=== PATIENT | female | born 1980 | race Two or more races ===

== ENCOUNTER 2025-03-29 08:50 | Inpatient (IN) | payer MEDICAID ==
[~2025-03-29] VITALS: Ht 167.6 cm; Wt 82.0 kg
[2025-03-29 09:11] VITALS: PULSE 65; RESP 18
[2025-03-29] MEDS: SODIUM CHLORIDE 0.9% 2,000 ML IV ONE (09:18)
[2025-03-29 09:23] LABS: Basophils # (auto) 0 10 ^3/uL (0-0.2); Basophils % (auto) 0.1 % (0.0-2.0); Eosinophils # (auto) 0 10 ^3/uL (0-0.8); Hematocrit 42.3 % (36.0-46.0); Hemoglobin 14.8 g/dL (12.2-16.2); Lymphocytes # (auto) 0.5 10 ^3/uL (0.4-5.4); Lymphocytes % (auto) 2.7 % (10.0-50.0); Mean Corpuscular Hemoglobin 31.3 pg (28.0-32.0); Mean Corpuscular Hgb Conc. 34.9 g/dL (32.0-36.0); Mean Corpuscular Volume 89.6 fL (80.0-100.0); Monocytes # (auto) 1.2 10 ^3/uL (0-1.3); Monocytes % (auto) 6.9 % (0.0-12.0); Neutrophils % (auto) 90.3 % (37.0-80.0); Platelet Count (auto) 217 10^3/uL (140-450); Red Blood Cells 4.72 10^6/uL (4.0-5.20); Red Cell Distribution Width 12.9 % (11.8-14.3); White Blood Cell 17.7 10^3/uL (4.4-10.8)
[2025-03-29] MEDS: VANCOMYCIN 1GM/200ML PM 200 ML IV ONE (09:23)
--- NOTE | 2025-03-29 09:37 | ED.PDOC ---
History of Present Illness HPI Comments 44-year-old female presents to the ER with prior medical history of hypertension; surgical history of cholecystectomy, and a chief complain of flank pain. Patient reports on having fever, chills, headache, body aches, swelling, bilateral back pain, N/V, right flank pain with burning urination all since Saturday. Patient had her blood pressure in triage of 94/66. Denies /D, SOB, CP. No other associated symptoms, modifiers, recent injuries or sick contacts present at this time. 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 JACK TAMP OPERATOR History Family History Family History: Reviewed,noncontributory to illness, Unknown Social History Smoker: Non-Smoker Alcohol: Denies ETOH Use Drugs: Denies Drug Use Lives In: Home Constitutional: reports: chills, fever; denies: diaphoresis, fatigue, malaise, sweats, weakness, others EENTM: denies: blurred vision, double vision, ear bleeding, ear discharge, ear drainage, ear pain, ear ringing, eye pain, eye redness, hearing loss, mouth pain, mouth swelling, nasal discharge, nose bleeding, nose congestion, nose pain, photophobia, tearing, throat pain, throat swelling, voice changes, others Respiratory: denies: cough, hemoptysis, orthopnea, SOB at rest, shortness of breath, SOB with excertion, stridor, wheezing, others Cardiovascular: denies: chest pain, dizzy spells, diaphoresis, Dyspnea on e xertion, edema, irregular heart beat, left arm pain, lightheadedness, palpitations, PND, syncope, others Gastrointestinal: reports: nausea, vomiting; denies: abdomen distended, abdominal pain, blood streaked bowels, constipated, diarrhea, dysphagia, difficulty swallowing, hematemesis, melena, poor appetite, poor fluid intake, rectal bleeding, rectal pain, others Genitourinary: reports: flank pain; denies: abnormal vagina bleeding, burning, dyspareunia, dysuria, frequency, hematuria, incontinence, pain, , vagina discharge, urgency, others Neurological: denies: dizziness, fainting, headache, left sided numbness, left sided weakness, numbness, paresthesia, pre-existing deficit, right sided numbness, right sided weakness, seizure, speech problems, tingling, tremors, weakness, others Musculoskeletal: denies: back pain, gout, joint pain, joint swelling, muscle pain, muscle stiffness, neck pain, others Integumetry: denies: bruises, change in color, change in hair/nails, dryness, laceration, lesions, lumps, rash, wounds, others Allergic/Immunocompromised: denies: Difficulty Healing, Frequent Infections, Hives, Itching, others Hematologic/Lymphatic: denies: anemia, blood clots, easy bleeding, easy bruising, swollen glands, others Endocrine: denies: excessive hunger, excessive sweating, excessive thirst, excessive urination, flushing, intolerance to cold, intolerance to heat, unexplained weight gain, unexplained weight loss, others Psychiatric: denies: anxiety, bipolar disorder, depression, hopeless, panic d isorder, schizophrenia, sleepless, suicidal, others All Other Systems: Reviewed and Negative Physical Exam General Appearance: No Apparent Distress, Normal HEENT: Normal ENT Inspection, Pharynx Normal, TMs Normal Neck: Full Range of Motion, Non-Tender, Normal, Normal Inspection Respiratory: Chest Non-Tender, Lungs Clear, No Accessory Muscle Use, No Respiratory Distress, Normal Breath Sounds Cardiovascular: No Edema, No JVD, No Murmur, No Gallop, Normal Peripheral Pulses, Regular Rate/Rhythm Breast Exam: Deferred Gastrointestinal: No Organomegaly, Non Tender, No Pulsatile Mass, Normal Bowel Sounds, Soft Genitalia: Deferred Pelvic: Deferred Rectal: Deferred Extremities: No calf tenderness, Normal capillary refill, Normal inspection, Normal range of motion, Non-tender, No pedal edema Musculoskeletal : Apperance: Normal Neurologic: Alert, lathe set up person II-XII nml as Tested, No Motor Deficits, Normal Affect, Normal Mood, No Sensory Deficits Cerebellar Function: Normal Reflexes: Normal Skin: Dry, Normal Color, Warm Lymphatic: No Adenopathy Was a procedure done? Was a procedure done?: No Differential Dx Considerations may include: UTI, pyelonephritis, gastritis, pneumonia, viral syndrome X-Ray, Labs, Meds, VS Vital Signs Date Time Temp Pulse Resp B/P (MAP) Pulse Ox O2 Delivery O2 Flow Rate FiO2 03/29/25 09:11 65 18 Room Air* 0 21 03/29/25 09:06 97.5 115 16 94/66 (75) 96 97.5 03/29/25 09:06 97.5 115 16 94/66 (75) 96 97.5 Lab Test 03/29/25 09:36 03/29/25 09:19 03/29/25 09:08 03/29/25 08:59 Range/Units Urine Color Dark-brown Yellow Urine Clarity Turbid H Clear Urine pH 5.5 5.0-9.0 Urine Specific [place] 1.019 1.001-1.035 Urine Protein 1+ H Negative Urine Ketones Negative Negative Urine Blood Trace H Negative /uL Urine Nitrite 1+ H Negative Urine Bilirubin 1+ H Negative Urine Urobilinogen 4 H Negative mg/dL Urine Leukocyte Esterase Negative Negative /uL Urine RBC 4 0 - 4 /hpf Urine WBC Clumps Present None Seen /hpf Urine Microscopic WBC 56 H 0-5 /HPF Urine Squamous Epithelial Cells Few <5 /hpf Urine Bacteria Few H None Seen /hpf Urine Mucus Few None Seen Urine Glucose Normal Normal mg/dL Lactic Acid Level 1.6 0.4-2.0 mmol/L White Blood Count 17.7 H 4.4-10.8 10^3/uL Red Blood Count 4.72 4.0-5.20 10^6/uL Hemoglobin 14.8 12.2-16.2 g/dL Hematocrit 42.3 36.0-46.0 % Mean Corpuscular Volume 89.6 80.0-100.0 fL Mean Corpuscular Hemoglobin 31.3 28.0-32.0 pg Mean Corpuscular Hemoglobin Concent 34.9 32.0-36.0 g/dL Red Cell Distribution Width 12.9 11.8-14.3 % Platelet Count 217 140-450 10^3/uL Mean Platelet Volume 7.9 6.9-10.8 fL Neutrophils (%) (Auto) 90.3 H 37.0-80.0 % Lymphocytes (%) (Auto) 2.7 L 10.0-50.0 % Monocytes (%) (Auto) 6.9 0.0-12.0 % Eosinophils (%) (Auto) 0.0 0.0-7.0 % Basophils (%) (Auto) 0.1 0.0-2.0 % Neutrophils # (Auto) 16.0 H 1.6-8.6 10 ^3/uL Lymphocytes # (Auto) 0.5 0.4-5.4 10 ^3/uL Monocytes # (Auto) 1.2 0-1.3 10 ^3/uL Eosinophils # (Auto) 0 0-0.8 10 ^3/uL Basophils # (Auto) 0 0-0.2 10 ^3/uL Nucleated Red Blood Cells 0.0 % Prothrombin Time 12.2 H 9.3-11.8 sec Prothrombin Time INR 1.17 H 0.9-1.15 Activated Partial Thromboplast Time 29.3 24.5-34.5 SEC Sodium Level 140 136-145 mmol/L Potassium Level 3.7 3.5-5.1 mmol/L Chloride Level 103 98-107 mmol/L Carbon Dioxide Level 25 20-31 mmol/L Anion Gap 12 5-15 Blood Urea Nitrogen 19 9-23 mg/dL Creatinine 1.30 H 0.550-1.02 mg/dL Glomerular Filtration Rate Calc 52 >90 mL/min BUN/Creatinine Ratio 14.6 10.0-20.0 Serum Glucose 147 H 74-106 mg/dL Calcium Level 10.6 H 8.7-10.4 mg/dL Total Bilirubin 1.7 H 0.2-1.0 mg/dL Aspartate Amino Transferase (AST) 78 H 13-40 U/L Alanine Aminotransferase (ALT) 167 H 7-40 U/L Alkaline Phosphatase 172 H 46-116 U/L Total Protein 7.9 5.7-8.2 g/dL Albumin 4.8 3.2-4.8 g/dL Urine Test Negative Negative Current Medications Medications (Trade) Dose Ordered Sig/Nori Route Start Time Stop Time Status Last Admin Vancomycin HCl 200 ml @ 200 mls/hr ONCE ONCE IV 03/29/25 09:15 03/29/25 10:43 DC 03/29/25 09:23 Sodium Chloride 2,000 ml @ 1,000 mls/hr Q2H ONCE IV 03/29/25 09:15 03/29/25 11:14 DC 03/29/25 09:18 Time of 1ST Reevaluation: 09:30 Reevaluation 1ST: Unchanged Patient Education/Counseling: Diagnosis, Treatment, Prognosis Family Education/Counseling: No Family Present Sepsis Sepsis Reasesment Focused Exam Orders: Laboratory Tests 03/29/25 09:19: Lactic Acid Level 1.6 Departure 1 Departure Time of Disposition: 12:12 (Patient presents with pyelonephritis concerns for sepsis. We will empirically cover patient with antibiotics and admit patient fo r further workup and expert consultation. Patient's blood pressure improved after receiving fluids.) Impression: Primary Impression: Acute pyelonephritis Disposition: ADMITTED INPATIENT Admit to: Med Surg Condition: Serious Critical Care Note Critical Care Time?: Yes Critical care comment: Concern for sepsis Authorized and Performed by: Joelle Philippe MD Total critical care time: Approximately 34 minutes Due to a high probability of clinically significant, life threatening deterioration, the patient required my highest level of preparedness to intervene emergently and I personally spent this critical care time directly and personally managing the patient. This critical care time included obtaining a h istory; examining the patient; pulse oximetry; ordering and review of studies; arranging urgent treatment with development of a management plan; evaluation of patient's response to treatment; frequent reassessment; and, discussions with other providers. This critical care time was performed to assess and manage the high probability of imminent, life-threatening deterioration that could result in multi-organ failure. It was exclusive of separately billable procedures and treating other patients and teaching time. Please see my other sections and the rest of the note for further information on patient assessment and treatment. Stability Stability form required: No I personally scribed for JOELLE PHILIPPE MD ([email or web address]) on 03/29/25 at 09:37. Electronically submitted by Stef Marshall ([email or web address]). JOELLE PHILIPPE MD Mar 29, 2025 09:37
[2025-03-29 09:38] LABS: Anion Gap 12 (5-15); BUN/Creatinine Ratio 14.6 (10.0-20.0); Blood Urea Nitrogen 19 mg/dL (9-23); Carbon Dioxide 25 mmol/L (20-31); Chloride 103 mmol/L (98-107); Potassium 3.7 mmol/L (3.5-5.1); Sodium 140 mmol/L (136-145); Total Protein 7.9 g/dL (5.7-8.2)
[2025-03-29 09:39] LABS: INR 1.17 (0.9-1.15); Partial Thromboplastin Time 29.3 SEC (24.5-34.5); Prothrombin Time 12.2 sec (9.3-11.8)
[2025-03-29 09:43] LABS: Alanine Aminotransferase 167 U/L (7-40); Albumin 4.8 g/dL (3.2-4.8); Alkaline Phosphatase 172 U/L (46-116); Aspartate Aminotransferase 78 U/L (13-40); Bilirubin, Total 1.7 mg/dL (0.2-1.0); Calcium 10.6 mg/dL (8.7-10.4); Glucose 147 mg/dL (74-106)
--- NOTE | 2025-03-29 10:06 | DVH ---
EXAM: XY CHEST PORTABLE Indication: weakness Technique: Single frontal view of the chest was obtained Comparison: None FINDINGS: Lines and Tubes: None Lungs: No focal consolidation. Pleura: No effusion. No pneumothorax. Cardiomediastinal contours: Unremarkable. Atherosclerotic vascular calcifications of the thoracic ao rta are noted. Bones: No acute osseous abnormality. IMPRESSION: No acute cardiopulmonary disease.
[2025-03-29 11:56] LABS: Urine Bacteria FEW /hpf (None Seen); Urine Blood TRACE /uL (Negative); Urine Clarity Turbid (Clear); Urine Color Dark-Brown (Yellow); Urine Mucus FEW (None Seen); Urine Protein, UAD 1+ (Negative); Urine Specific Gravity 1.019 (1.001-1.035); Urine Squamous Epithelial Cell FEW /hpf (<5); Urine Urobilinogen 4 mg/dL (Negative); Urine WBC 56 /HPF (0-5); Urine WBC Clumps PRESENT /hpf (None Seen); Urine pH 5.5 (5.0-9.0)
[2025-03-29] MEDS: CEFEPIME 1GM/ 50ML 50 ML IV SCH (14:13)
--- NOTE | 2025-03-29 14:16 | DVH ---
INDICATION: flank pain TECHNIQUE: Multiple real-time sonographic images of the kidneys and bladder were obtained. COMPARISON: None FINDINGS: The right kidney measures 11 cm in length, which is normal in size. There is normal echogen icity of the right kidney. No hydronephrosis. The left kidney measures 12 cm in length, which is normal in size. There is normal echogenicity of th e left kidney. No hydronephrosis. No large intraluminal masses are seen in the bladder. IMPRESSION: 1. Normal sonographic appearance of the kidneys. No hydronephrosis.
[2025-03-29] MEDS ORDERED: ONDANSETRON HCL 4 MG/2 ML VIAL IV PRN (14:30)
[2025-03-29] MEDS ORDERED: DOCUSATE SOD 100 MG CAP PO PRN (14:30)
[2025-03-29] MEDS ORDERED: MORPHINE SULFATE INJ 2 MG/ml SYRG IV PRN (14:30)
[2025-03-29] MEDS ORDERED: VANCOMYCIN PER PHARMACY 0 MG IV SCH (14:30)
--- NOTE | 2025-03-29 14:46 | DVHHP2 ---
History of Present Illness Reason for Visit: Flank pain History of Present Illness Ciarra Marshall is a 44-year-old with past medical history of hypertension, who came to the hospital for flank pain. Patient states her pain began on Saturday with associated fever, chills, nausea, dysuria, frequency, and malaise. Patient states she was taking over the counter medications without improvement. They would help her for a little bit, then her symptoms would return. Cardiovascular: HTN Past Surgical History: Cholecystectomy, (x 3) Family History: None Smoke: No ALCOHOL: occassional Drugs: None Lives: with Family Review of Systems Constitutional: No: Fever, Chills, Sweats, Weakness, Malaise, Other Eyes: No: Pain, Vision change, Conjunctivae inflammation, Eyelid inflammation, Other, Redness ENT: No: Ear pain, Ear discharge, Nose pain, Nose discharge, Nose congestion, Mouth pain, Mouth swelling, Throat pain, Throat swelling, Other Respiratory: No: Cough, Dry, Shortness of breath, SOB with excertion, Wheezing, Hemoptysis, Pleuritic Pain, Sputum, Wheezing, Other Cardiovascular: No: Chest Pain, Palpitations, Orthopnea, Paroxysmal Noc. Dyspnea, Edema, Lt Headedness, Other Gastrointestinal: Nausea; No: Vomiting, Abdominal Pain, Diarrhea, Constipation, Melena, Hematochezia, Other Genitourinary: Dysuria, Frequency; No Incontinence, No Hematuria, No Retention, No Other Musculoskeletal: back pain (flank pain that radiates to abdomen); No: other, neck pain, shoulder pain, arm pain, hand pain, leg pain, foot pain Skin: No: Rash, Lesions, Jaundice, Bruising, Other Neurological: No: Weakness, Numbness, Incoordination, Change in speech, Confusion, Seizures, Other Allergies: Coded Allergies: NO KNOWN ALLERGIES (Unverified , 03/29/25) Medications Current Medications Medications Dose Ordered Sig/Nori Route Start Time Stop Time Status Last Admin Dose Admin Cefepime HCl 50 ml @ 12.5 mls/hr Q8HR IV 03/29/25 14:00 03/29/25 14:13 12.5 MLS/HR Exam Vital Signs Vital Signs Date Time Temp Pulse Resp B/P (MAP) Pulse Ox O2 Delivery O2 Flow Rate FiO2 03/29/25 12:46 98.4 89 18 106/75 (85) 98 98.4 03/29/25 09:11 Room Air* 0 21 General Appearance: Alert, Oriented X3, Cooperative, moderate distress HEENT: Atraumatic, PERRLA Respiratory: Clear to auscultation, Normal air movement Cardiovascular: Regular rate, Normal S1, Normal S2, No murmurs Abdominal: Normal bowel sounds, Soft, Other (flank pain that radiates to her abdomen) Extremities: No clubbing, No cyanosis, Normal pulses Skin: No rashes, No breakdown, No significant lesion Neuro: Normal gait, Normal speech, Strength at 5/5 X4 ext Psych/Mental Status: Mental status NL, Mood NL Labs/Xrays Labs Test 03/29/25 09:36 03/29/25 09:19 03/29/25 09:08 03/29/25 08:59 Range/Units Urine Color Dark-brown Yellow Urine Clarity Turbid H Clear Urine pH 5.5 5.0-9.0 Urine Specific [place] 1.019 1.001-1.035 Urine Protein 1+ H Negative Urine Ketones Negative Negative Urine Blood Trace H Negative /uL Urine Nitrite 1+ H Negative Urine Bilirubin 1+ H Negative Urine Urobilinogen 4 H Negative mg/dL Urine Leukocyte Esterase Negative Negative /uL Urine RBC 4 0 - 4 /hpf Urine WBC Clumps Present None Seen /hpf Urine Microscopic WBC 56 H 0-5 /HPF Urine Squamous Epithelial Cells Few <5 /hpf Urine Bacteria Few H None Seen /hpf Urine Mucus Few None Seen Urine Glucose Normal Normal mg/dL Lactic Acid Level 1.6 0.4-2.0 mmol/L White Blood Count 17.7 H 4.4-10.8 10^3/uL Red Blood Count 4.72 4.0-5.20 10^6/uL Hemoglobin 14.8 12.2-16.2 g/dL Hematocrit 42.3 36.0-46.0 % Mean Corpuscular Volume 89.6 80.0-100.0 fL Mean Corpuscular Hemoglobin 31.3 28.0-32.0 pg Mean Corpuscular Hemoglobin Concent 34.9 32.0-36.0 g/dL Red Cell Distribution Width 12.9 11.8-14.3 % Platelet Count 217 140-450 10^3/uL Mean Platelet Volume 7.9 6.9-10.8 fL Neutrophils (%) (Auto) 90.3 H 37.0-80.0 % Lymphocytes (%) (Auto) 2.7 L 10.0-50.0 % Monocytes (%) (Auto) 6.9 0.0-12.0 % Eosinophils (%) (Auto) 0.0 0.0-7.0 % Basophils (%) (Auto) 0.1 0.0-2.0 % Neutrophils # (Auto) 16.0 H 1.6-8.6 10 ^3/uL Lymphocytes # (Auto) 0.5 0.4-5.4 10 ^3/uL Monocytes # (Auto) 1.2 0-1.3 10 ^3/uL Eosinophils # (Auto) 0 0-0.8 10 ^3/uL Basophils # (Auto) 0 0-0.2 10 ^3/uL Nucleated Red Blood Cells 0.0 % Prothrombin Time 12.2 H 9.3-11.8 sec Prothrombin Time INR 1.17 H 0.9-1.15 Activated Partial Thromboplast Time 29.3 24.5-34.5 SEC Sodium Level 140 136-145 mmol/L Potassium Level 3.7 3.5-5.1 mmol/L Chloride Level 103 98-107 mmol/L Carbon Dioxide Level 25 20-31 mmol/L Anion Gap 12 5-15 Blood Urea Nitrogen 19 9-23 mg/dL Creatinine 1.30 H 0.550-1.02 mg/dL Glomerular Filtration Rate Calc 52 >90 mL/min BUN/Creatinine Ratio 14.6 10.0-20.0 Serum Glucose 147 H 74-106 mg/dL Calcium Level 10.6 H 8.7-10.4 mg/dL Total Bilirubin 1.7 H 0.2-1.0 mg/dL Aspartate Amino Transferase (AST) 78 H 13-40 U/L Alanine Aminotransferase (ALT) 167 H 7-40 U/L Alkaline Phosphatase 172 H 46-116 U/L Total Protein 7.9 5.7-8.2 g/dL Albumin 4.8 3.2-4.8 g/dL Urine Test Negative Negative Technique: Real-time ultrasound imaging of the abdomen was performed with grayscale and color Doppler. Findings: Liver measures 16.6 cm. It is increased in echogenicity and echotexture without focal mass. Portal vein is normal in caliber and demonstrates normal hepatopetal flow. Gallbladder removed. The common bile duct measures 3 mm. No intrahepatic biliary ductal dilatation. The right kidney measures 11.8 cm. No hydronephrosis or sonographic evidence of nephrolithiasis. The visualized portion of the pancreas is unremarkable. The visualized portion of the IVC is unremarkable. Impression: 1. Echogenic liver which can be seen with hepatic steatosis, cirrhosis. 2. Cholecystectomy. TECHNIQUE: Multiple real-time sonographic images of the kidneys and bladder were obtained. FINDINGS: The right kidney measures 11 cm in length, which is normal in size. There is normal echogenicity of the right kidney. No hydronephrosis. The left kidney measures 12 cm in length, which is normal in size. There is normal echogenicity of the left kidney. No hydronephrosis. No large intraluminal masses are seen in the bladder. IMPRESSION: 1. Normal sonographic appearance of the kidneys. No hydronephrosis. EXAM: XY CHEST PORTABLE FINDINGS: Lines and Tubes: None Lungs: No focal consolidation. Pleura: No effusion. No pneumothorax. Cardiomediastinal contours: Unremarkable. Atherosclerotic vascular calcifications of the thoracic aorta are noted. Bones: No acute osseous abnormality. IMPRESSION: No acute cardiopulmonary disease. Assessment/Plan Assessment/Plan Assessment: Acute pyelonephritis, Complicated UTI, Transaminitis, Hypertension, Hyperglycemia, Plan: Admit to Med-Surg, IV antibiotics, IV hydration, Pain management, Kidney ultrasound, Liver ultrasound, A1c, Home medications reconciled, Plan discussed with: Patient My Orders Orders - STEVEN CESAR Procedure Category Date Status Time Kidney US 03/29/25 Resulted 13:08 Admit ADMIT 03/29/25 Verified 14:25 Code Status CODE 03/29/25 Verified 14:25 2 Gm Sodium Diet DIET 03/29/25 Verified Dinner Hydrocodone-Acet PHA 03/29/25 Verified 5/325mg Tab ([place] 14:30 Ondansetron Hcl PHA 03/29/25 Verified (Zofran) 14:30 Docusate Sodium PHA 03/29/25 Verified Capsule (Colace 14:30 Complete Blood Count LAB 03/30/25 Verified 04:00 Comprehensive LAB 03/30/25 Verified Metabolic Panel 04:00 Condition: Serious KRISSY 03/29/25 Verified 14:25 Acetaminophen Tablet PHA 03/29/25 Verified (Tylenol Tablet) 14:30 Morphine Sulfate PHA 03/29/25 Verified Injection 14:30 Vancomycin Per PHA 03/29/25 Verified Pharmacy 14:30 NS PHA 03/29/25 Verified 14:30 LIVER US 03/29/25 Verified 14:25 Date of Service: Mar 29, 2025 Billing Provider: STEVEN CESAR Common Visit Codes: [id number] INP/OBS CARE (MOD) STEVEN CESAR Mar 29, 2025 14:46
[2025-03-29 15:00] VITALS: PULSE 89; RESP 18; O2SAT 97
--- NOTE | 2025-03-29 15:13 | DVH ---
Technique: Real-time ultrasound imaging of the abdomen was performed with grayscale and color Doppler . Indication: elevated liver enzymes Comparison: None Findings: Liver measures 16.6 cm. It is increased in echogenicity and echotexture without focal mass. Portal v ein is normal in caliber and demonstrates normal hepatopetal flow. Gallbladder removed. The common bile duct measures 3 mm. No intrahepatic biliary ductal dilatation. The right kidney measures 11.8 cm. No hydronephrosis or sonographic evidence of nephrolithiasis. The visualized portion of the pancreas is unremarkable. The visualized portion of the IVC is unremarkable. Impression: 1. Echogenic liver which can be seen with hepatic steatosis, cirrhosis. 2. Cholecystectomy.
[2025-03-29] MEDS: SODIUM CHLORIDE 0.9% 1,000 ML IV ONE (15:26)
[2025-03-29] MEDS: HYDROcodone-ACET 5/325MG TAB PO PRN (15:28)
[2025-03-29] MEDS: ACETAMINOPHEN 325 MG TAB PO PRN (16:33)
[2025-03-29] MEDS ORDERED: LISI-285 PO (16:37)
[2025-03-29] MEDS ORDERED: TRAZ-227 PO (16:37)
[2025-03-29 16:41] VITALS: BP 118/73; PULSE 84; RESP 16; TEMP 100.6; O2SAT 96
[2025-03-29] MEDS: IBUPROFEN 800 MG TAB PO ONE (18:44)
[2025-03-29 18:48] VITALS: TEMP 99.2
[2025-03-29 20:02] VITALS: BP 96/60; PULSE 101; RESP 18; TEMP 98.5; O2SAT 94
[2025-03-30] MEDS: IBUPROFEN 600 MG TAB PO ONE (02:16)
[2025-03-30 04:30] LABS: Basophils # (auto) 0 10 ^3/uL (0-0.2); Basophils % (auto) 0.2 % (0.0-2.0); Eosinophils # (auto) 0 10 ^3/uL (0-0.8); Eosinophils % (auto) 0.1 % (0.0-7.0); Hematocrit 35.3 % (36.0-46.0); Hemoglobin 12.3 g/dL (12.2-16.2); Lymphocytes # (auto) 0.6 10 ^3/uL (0.4-5.4); Mean Corpuscular Hemoglobin 31.6 pg (28.0-32.0); Mean Corpuscular Volume 90.3 fL (80.0-100.0); Monocytes # (auto) 1.1 10 ^3/uL (0-1.3); Monocytes % (auto) 9.1 % (0.0-12.0); Neutrophils # (auto) 10.1 10 ^3/uL (1.6-8.6); Neutrophils % (auto) 85.6 % (37.0-80.0); Platelet Count (auto) 182 10^3/uL (140-450); Red Blood Cells 3.91 10^6/uL (4.0-5.20); Red Cell Distribution Width 12.9 % (11.8-14.3); White Blood Cell 11.8 10^3/uL (4.4-10.8)
[2025-03-30 04:39] LABS: Anion Gap 10 (5-15); BUN/Creatinine Ratio 25.9 (10.0-20.0); Blood Urea Nitrogen 22 mg/dL (9-23); Calcium 9.4 mg/dL (8.7-10.4); Carbon Dioxide 23 mmol/L (20-31); Chloride 104 mmol/L (98-107); Sodium 137 mmol/L (136-145); Total Protein 6.6 g/dL (5.7-8.2)
[2025-03-30 04:41] LABS: Alanine Aminotransferase 108 U/L (7-40); Alkaline Phosphatase 127 U/L (46-116); Glucose 117 mg/dL (74-106); Potassium 3.2 mmol/L (3.5-5.1)
[2025-03-30 05:08] LABS: Aspartate Aminotransferase 41 U/L (13-40)
[2025-03-30 05:55] VITALS: BP 116/75; PULSE 75; RESP 18; TEMP 98.6; O2SAT 95
[2025-03-30 07:49] VITALS: BP 126/79; PULSE 92; RESP 16; TEMP 98.6; O2SAT 96
[2025-03-30] MEDS: hydroCHLOROthiazide 25 MG TAB PO SCH (08:12)
[2025-03-30] MEDS: POTASSIUM CHL 20 Meq TABLET PO ONE (08:13)
[2025-03-30] MEDS: LISINOPRIL 5 MG TAB PO SCH (08:13)
[2025-03-30 13:00] VITALS: BP 119/83; PULSE 93; RESP 16; TEMP 97.5; O2SAT 97
[2025-03-30] MEDS: VANCOMYCIN 750mg/100mL D5W or NS KIT IV SCH (13:06)
[2025-03-30] MEDS ORDERED: VANCOMYCIN 1GM/200ML PM 200 ML IV SCH (15:00)
--- NOTE | 2025-03-30 16:31 | DVHPN2 ---
Subjective having some pain but better Reviewed: H&P, Labs Changes from previous H/P or p: No Changes General: Per HPI Eyes: No Pain, No Vision change, No Conjunctivae inflammation, No Eyelid inflammation, No Other, No Redness ENT: No Ear pain, No Ear discharge, No Nose pain, No Nose discharge, No Nose congestion, No Mouth pain, No Mouth swelling, No Throat pain, No Throat swelling, No Other Cardiovascular: No Chest Pain, No Palpitations, No Orthopnea, No Paroxysmal Noc. Dyspnea, No Edema, No Lt Headedness, No Other Respiratory: No Cough, No Dry, No Shortness of breath, No SOB with excertion, No Wheezing, No Hemoptysis, No Pleuritic Pain, No Sputum, No Other Gastrointestinal: Nausea; No Vomiting, No Abdominal Pain, No Diarrhea, No Constipation, No Melena, No Hematochezia, No Other Genitourinary: Dysuria, Frequency; No Incontinence, No Hematuria, No Retention, No Other Musculoskeletal: No other, No neck pain, No shoulder pain, No arm pain; back pain (flank pain that radiates to abdomen); No hand pain, No leg pain, No foot pain Skin: No Rash, No Lesions, No Jaundice, No Bruising, No Other Objective Vitals Vital Signs Date Time Temp Pulse Resp B/P (MAP) Pulse Ox O2 Delivery O2 Flow Rate FiO2 03/30/25 13:00 97.5 93 16 119/83 (95) 97 97.5 03/29/25 15:00 Room Air* 0 21 Intake/Output Intake and Output 03/30/25 07:00 Intake Total 1800 ml Balance 1800 ml Intake Oral 700 ml IV Total 1100 ml # Voids 5 General Appearance: Alert, Oriented X3 HEENT: Atraumatic Lungs: Clear to auscultation Cardiovascular: Regular rate, Normal S1, Normal S2 Medications Current Medications Medications Dose Ordered Sig/Nori Route Start Time Stop Time Status Last Admin Dose Admin Cefepime HCl 50 ml @ 12.5 mls/hr Q8HR IV 03/29/25 14:00 03/30/25 13:46 12.5 MLS/HR Acetaminophen/ Hydrocodone Bitart 1 tab Q4HP PRN PO 03/29/25 14:30 03/30/25 14:10 1 TAB Ondansetron HCl 4 mg Q4HP PRN IV 03/29/25 14:30 Docusate Sodium 100 mg BIDPRN PRN PO 03/29/25 14:30 Acetaminophen 650 mg Q6HP PRN PO 03/29/25 14:30 03/29/25 16:33 650 MG Morphine Sulfate 2 mg Q4HPRN PRN IV 03/29/25 14:30 Vancomycin HCl 0 ml @ 0 mls/hr UD IV 03/29/25 14:30 Lisinopril 10 mg DAILY PO 03/30/25 10:00 03/30/25 08:13 10 MG Hydrochlorothiazide 12.5 mg DAILY PO 03/30/25 10:00 03/30/25 08:12 12.5 MG Vancomycin HCl 200 ml @ 200 mls/hr Q12H IV 03/30/25 15:00 UNV Vancomycin HCl 100 ml @ 100 mls/hr Q12H IV 03/30/25 13:00 03/30/25 13:06 100 MLS/HR Laboratory Results Laboratory Tests 03/30/25 03:46 Chemistry Test 03/30/25 03:46 Albumin 4.0 g/dL (3.2-4.8) Calcium Level 9.4 mg/dL (8.7-10.4) Total Protein 6.6 g/dL (5.7-8.2) LFT Test 03/30/25 03:46 Alanine Aminotransferase (ALT) 108 U/L (7-40) H Alkaline Phosphatase 127 U/L (46-116) H Aspartate Amino Transferase (AST) 41 U/L (13-40) H Total Bilirubin 1.0 mg/dL (0.2-1.0) HgA1c, TSH Test 03/30/25 03:46 Hemoglobin A1c 4.8 % A1C (<5.7) Urinalysis Test 03/29/25 08:59 03/29/25 09:36 Urine Test Negative (Negative) Urine Color Dark-brown (Yellow) Urine Clarity Turbid (Clear) H Urine pH 5.5 (5.0-9.0) Urine Specific [place] 1.019 (1.001-1.035) Urine Protein 1+ (Negative) H Urine Ketones Negative (Negative) Urine Blood Trace /uL (Negative) H Urine Nitrite 1+ (Negative) H Urine Bilirubin 1+ (Negative) H Urine Urobilinogen 4 mg/dL (Negative) H Urine Leukocyte Esterase Negative /uL (Negative) Urine RBC 4 /hpf (0 - 4) Urine WBC Clumps Present /hpf (None Seen) Urine Microscopic WBC 56 /HPF (0-5) H Urine Squamous Epithelial Cells Few /hpf (<5) Urine Bacteria Few /hpf (None Seen) H Urine Mucus Few (None Seen) Urine Glucose Normal mg/dL (Normal) Microbiology Microbiology Date/Time Source Procedure Growth Status 03/29/25 09:19 Blood Blood Culture - Preliminary NO GROWTH AFTER 24 HOURS OF INCUBATION. Resulted Assessment/Plan Assessment/Plan Acute pyelonephritis, Complicated UTI, Transaminitis, Hypertension, Hyperglycemia, Continue IV abx Urine cx pending monitor lfts Plan discussed with: Patient Date of Service: Mar 30, 2025 Billing Provider: HEVER ONTIVEROS MD Common Visit Codes: [id number] INP/OBS CARE(HIGH) HEVER ONTIVEROS MD Mar 30, 2025 16:31
[2025-03-30 17:00] VITALS: BP 106/67; PULSE 86; RESP 16; TEMP 98.4; O2SAT 96
[2025-03-30 20:20] VITALS: PULSE 87; RESP 18; O2SAT 96
[2025-03-30 21:00] VITALS: BP 113/79; PULSE 87; RESP 18; TEMP 98; O2SAT 96
[2025-03-31] VITALS (7 sets, daily range): BP systolic 116–142; BP diastolic 72–92; PULSE 83–98; RESP 16–20; TEMP 97.9–101.6; O2SAT 95–98
[2025-03-31] MEDS: MELATONIN 5 MG TAB ONE (01:48)
[2025-03-31] MEDS: MELATONIN 5 MG TAB PO ONE (01:48)
[2025-03-31 06:52] LABS: Basophils # (auto) 0 10 ^3/uL (0-0.2); Basophils % (auto) 0.2 % (0.0-2.0); Eosinophils # (auto) 0 10 ^3/uL (0-0.8); Eosinophils % (auto) 0.1 % (0.0-7.0); Hemoglobin 11.9 g/dL (12.2-16.2); Lymphocytes % (auto) 10.9 % (10.0-50.0); Mean Corpuscular Hemoglobin 31.4 pg (28.0-32.0); Mean Corpuscular Volume 89.8 fL (80.0-100.0); Monocytes # (auto) 1.2 10 ^3/uL (0-1.3); Monocytes % (auto) 13.9 % (0.0-12.0); Neutrophils # (auto) 6.6 10 ^3/uL (1.6-8.6); Neutrophils % (auto) 74.9 % (37.0-80.0); Platelet Count (auto) 186 10^3/uL (140-450); Red Blood Cells 3.79 10^6/uL (4.0-5.20); Red Cell Distribution Width 13.2 % (11.8-14.3); White Blood Cell 8.8 10^3/uL (4.4-10.8)
[2025-03-31 07:03] LABS: Anion Gap 9 (5-15); Carbon Dioxide 26 mmol/L (20-31); Chloride 103 mmol/L (98-107); Sodium 138 mmol/L (136-145)
[2025-03-31 07:04] LABS: Calcium 9.8 mg/dL (8.7-10.4); Potassium 3.5 mmol/L (3.5-5.1)
[2025-03-31 07:09] LABS: BUN/Creatinine Ratio 18.1 (10.0-20.0); Blood Urea Nitrogen 13 mg/dL (9-23); Glucose 103 mg/dL (74-106)
--- NOTE | 2025-03-31 12:29 | DVHPN2 ---
Subjective pain improved Reviewed: H&P, Labs Changes from previous H/P or p: No Changes General: Per HPI Eyes: No Pain, No Vision change, No Conjunctivae inflammation, No Eyelid inflammation, No Other, No Redness ENT: No Ear pain, No Ear discharge, No Nose pain, No Nose discharge, No Nose congestion, No Mouth pain, No Mouth swelling, No Throat pain, No Throat swelling, No Other Cardiovascular: No Chest Pain, No Palpitations, No Orthopnea, No Paroxysmal Noc. Dyspnea, No Edema, No Lt Headedness, No Other Respiratory: No Cough, No Dry, No Shortness of breath, No SOB with excertion, No Wheezing, No Hemoptysis, No Pleuritic Pain, No Sputum, No Other Gastrointestinal: Nausea; No Vomiting, No Abdominal Pain, No Diarrhea, No Constipation, No Melena, No Hematochezia, No Other Genitourinary: Dysuria, Frequency; No Incontinence, No Hematuria, No Retention, No Other Musculoskeletal: No other, No neck pain, No shoulder pain, No arm pain; back pain (flank pain that radiates to abdomen); No hand pain, No leg pain, No foot pain Skin: No Rash, No Lesions, No Jaundice, No Bruising, No Other Objective Vitals Vital Signs Date Time Temp Pulse Resp B/P (MAP) Pulse Ox O2 Delivery O2 Flow Rate FiO2 03/31/25 09:47 142/92 03/31/25 09:00 99.0 98 20 98 99.0 03/31/25 08:00 Room Air* 0 21 Intake/Output Intake and Output 03/31/25 07:00 Intake Total 1190 ml Balance 1190 ml Intake Oral 740 ml IV Total 450 ml General Appearance: Alert, Oriented X3 HEENT: Atraumatic Lungs: Clear to auscultation Cardiovascular: Regular rate, Normal S1, Normal S2 Medications Current Medications Medications Dose Ordered Sig/Nori Route Start Time Stop Time Status Last Admin Dose Admin Cefepime HCl 50 ml @ 12.5 mls/hr Q8HR IV 03/29/25 14:00 03/31/25 05:20 12.5 MLS/HR Acetaminophen/ Hydrocodone Bitart 1 tab Q4HP PRN PO 03/29/25 14:30 03/30/25 14:10 1 TAB Ondansetron HCl 4 mg Q4HP PRN IV 03/29/25 14:30 Docusate Sodium 100 mg BIDPRN PRN PO 03/29/25 14:30 Acetaminophen 650 mg Q6HP PRN PO 03/29/25 14:30 03/31/25 09:50 650 MG Morphine Sulfate 2 mg Q4HPRN PRN IV 03/29/25 14:30 Vancomycin HCl 0 ml @ 0 mls/hr UD IV 03/29/25 14:30 Lisinopril 10 mg DAILY PO 03/30/25 10:00 03/31/25 09:47 10 MG Hydrochlorothiazide 12.5 mg DAILY PO 03/30/25 10:00 03/31/25 09:47 12.5 MG Vancomycin HCl 200 ml @ 200 mls/hr Q12H IV 03/30/25 15:00 UNV Vancomycin HCl 100 ml @ 100 mls/hr Q12H IV 03/30/25 13:00 03/30/25 13:06 100 MLS/HR Laboratory Results Laboratory Tests 03/31/25 05:31 Chemistry Test 03/31/25 05:31 Calcium Level 9.8 mg/dL (8.7-10.4) Urinalysis Test 03/29/25 08:59 03/29/25 09:36 Urine Test Negative (Negative) Urine Color Dark-brown (Yellow) Urine Clarity Turbid (Clear) H Urine pH 5.5 (5.0-9.0) Urine Specific [place] 1.019 (1.001-1.035) Urine Protein 1+ (Negative) H Urine Ketones Negative (Negative) Urine Blood Trace /uL (Negative) H Urine Nitrite 1+ (Negative) H Urine Bilirubin 1+ (Negative) H Urine Urobilinogen 4 mg/dL (Negative) H Urine Leukocyte Esterase Negative /uL (Negative) Urine RBC 4 /hpf (0 - 4) Urine WBC Clumps Present /hpf (None Seen) Urine Microscopic WBC 56 /HPF (0-5) H Urine Squamous Epithelial Cells Few /hpf (<5) Urine Bacteria Few /hpf (None Seen) H Urine Mucus Few (None Seen) Urine Glucose Normal mg/dL (Normal) Microbiology Microbiology Date/Time Source Procedure Growth Status 03/29/25 09:19 Blood Blood Culture - Preliminary NO GROWTH AFTER 48 HOURS OF INCUBATION. Resulted Assessment/Plan Assessment/Plan Acute pyelonephritis, Complicated UTI, Transaminitis, Hypertension, Hyperglycemia, WBC 17>8 Continue IV abx Urine cx pending monitor lfts Plan discussed with: Patient My Orders Orders - HEVER ONTIVEROS MD Procedure Category Date Status Time Basic Metabolic Panel LAB 04/01/25 Verified 05:00 Basic Metabolic Panel LAB 04/02/25 Verified 05:00 Basic Metabolic Panel LAB 04/03/25 Verified 05:00 Basic Metabolic Panel LAB 04/04/25 Verified 05:00 Basic Metabolic Panel LAB 04/05/25 Verified 05:00 Basic Metabolic Panel LAB 04/06/25 Verified 05:00 Complete Blood Count LAB 04/01/25 Verified 05:00 Complete Blood Count LAB 04/02/25 Verified 05:00 Complete Blood Count LAB 04/03/25 Verified 05:00 Complete Blood Count LAB 04/04/25 Verified 05:00 Complete Blood Count LAB 04/05/25 Verified 05:00 Complete Blood Count LAB 04/06/25 Verified 05:00 Date of Service: Mar 31, 2025 Billing Provider: HEVER ONTIVEROS MD Common Visit Codes: [id number] INP/OBS CARE(HIGH) HEVER ONTIVEROS MD Mar 31, 2025 12:29
[2025-03-31] MEDS ORDERED: VANCOMYCIN 750mg/150ml 150 ML IV SCH (12:30)
[2025-03-31] MEDS: VANCOMYCIN 750mg/150ml 150 ML IV SCH (13:41)
[2025-04-01] MEDS: MELATONIN 5 MG TAB PO ONE (00:46)
[2025-04-01 01:00] VITALS: BP 124/84; PULSE 84; RESP 18; TEMP 99.5; O2SAT 95
[2025-04-01 05:00] VITALS: BP 107/67; PULSE 82; RESP 16; TEMP 98.1; O2SAT 99
[2025-04-01 06:11] LABS: Basophils # (auto) 0 10 ^3/uL (0-0.2); Basophils % (auto) 0.4 % (0.0-2.0); Eosinophils # (auto) 0 10 ^3/uL (0-0.8); Eosinophils % (auto) 0.2 % (0.0-7.0); Hematocrit 35.9 % (36.0-46.0); Hemoglobin 12.6 g/dL (12.2-16.2); Lymphocytes # (auto) 1.5 10 ^3/uL (0.4-5.4); Lymphocytes % (auto) 16.4 % (10.0-50.0); Mean Corpuscular Hemoglobin 31.2 pg (28.0-32.0); Mean Corpuscular Volume 89.3 fL (80.0-100.0); Monocytes # (auto) 1.3 10 ^3/uL (0-1.3); Monocytes % (auto) 14.5 % (0.0-12.0); Neutrophils # (auto) 6.3 10 ^3/uL (1.6-8.6); Neutrophils % (auto) 68.5 % (37.0-80.0); Platelet Count (auto) 218 10^3/uL (140-450); Red Blood Cells 4.02 10^6/uL (4.0-5.20); Red Cell Distribution Width 13.3 % (11.8-14.3); White Blood Cell 9.2 10^3/uL (4.4-10.8)
[2025-04-01 06:30] LABS: Anion Gap 9 (5-15); Carbon Dioxide 28 mmol/L (20-31); Chloride 101 mmol/L (98-107); Potassium 3.7 mmol/L (3.5-5.1); Sodium 138 mmol/L (136-145)
[2025-04-01 06:31] LABS: Calcium 9.6 mg/dL (8.7-10.4)
[2025-04-01 06:36] LABS: BUN/Creatinine Ratio 15.1 (10.0-20.0); Blood Urea Nitrogen 11 mg/dL (9-23); Glucose 102 mg/dL (74-106)
[2025-04-01 08:00] VITALS: PULSE 72; RESP 16; O2SAT 98
[2025-04-01 09:00] VITALS: BP 136/94; PULSE 72; RESP 16; TEMP 98; O2SAT 98
[2025-04-01] MEDS ORDERED: VANCOMYCIN 750MG KIT 100 ML IV SCH (10:00)
[2025-04-01 13:00] VITALS: BP 125/87; PULSE 83; RESP 18; TEMP 97.8; O2SAT 96
[2025-04-01] MEDS ORDERED: AUG875T PO (13:39)
[2025-04-01 15:32] VITALS: BP 136/94; PULSE 83; RESP 18; TEMP 97.8; O2SAT 96
--- NOTE | 2025-04-06 04:51 | DVHDS2 ---
Discharge Summary Date of Admission Mar 29, 2025 at 14:25 Date of Discharge: Apr 01, 2025 Labs/Diagnostic Data: Laboratory Results Test 04/01/25 05:37 03/31/25 12:06 03/30/25 03:46 03/29/25 09:36 White Blood Count 9.2 10^3/uL (4.4-10.8) Red Blood Count 4.02 10^6/uL (4.0-5.20) Hemoglobin 12.6 g/dL (12.2-16.2) Hematocrit 35.9 % (36.0-46.0) Mean Corpuscular Volume 89.3 fL (80.0-100.0) Mean Corpuscular Hemoglobin 31.2 pg (28.0-32.0) Mean Corpuscular Hemoglobin Concent 35.0 g/dL (32.0-36.0) Red Cell Distribution Width 13.3 % (11.8-14.3) Platelet Count 218 10^3/uL (140-450) Mean Platelet Volume 7.8 fL (6.9-10.8) Neutrophils (%) (Auto) 68.5 % (37.0-80.0) Lymphocytes (%) (Auto) 16.4 % (10.0-50.0) Monocytes (%) (Auto) 14.5 % (0.0-12.0) Eosinophils (%) (Auto) 0.2 % (0.0-7.0) Basophils (%) (Auto) 0.4 % (0.0-2.0) Neutrophils # (Auto) 6.3 10 ^3/uL (1.6-8.6) Lymphocytes # (Auto) 1.5 10 ^3/uL (0.4-5.4) Monocytes # (Auto) 1.3 10 ^3/uL (0-1.3) Eosinophils # (Auto) 0 10 ^3/uL (0-0.8) Basophils # (Auto) 0 10 ^3/uL (0-0.2) Nucleated Red Blood Cells 0.0 % Sodium Level 138 mmol/L (136-145) Potassium Level 3.7 mmol/L (3.5-5.1) Chloride Level 101 mmol/L (98-107) Carbon Dioxide Level 28 mmol/L (20-31) Anion Gap 9 (5-15) Blood Urea Nitrogen 11 mg/dL (9-23) Creatinine 0.73 mg/dL (0.550-1.02) Glomerular Filtration Rate Calc 104 mL/min (>90) BUN/Creatinine Ratio 15.1 (10.0-20.0) Serum Glucose 102 mg/dL (74-106) Calcium Level 9.6 mg/dL (8.7-10.4) Vancomycin Level Trough 6.8 ug/mL (5-10) Hemoglobin A1c 4.8 % A1C (<5.7) Total Bilirubin 1.0 mg/dL (0.2-1.0) Aspartate Amino Transferase (AST) 41 U/L (13-40) Alanine Aminotransferase (ALT) 108 U/L (7-40) Alkaline Phosphatase 127 U/L (46-116) Total Protein 6.6 g/dL (5.7-8.2) Albumin 4.0 g/dL (3.2-4.8) Random Vancomycin Level < 3.0 ug/mL (5-10) Urine Color Dark-brown (Yellow) Urine Clarity Turbid (Clear) Urine pH 5.5 (5.0-9.0) Urine Specific [place] 1.019 (1.001-1.035) Urine Protein 1+ (Negative) Urine Ketones Negative (Negative) Urine Blood Trace /uL (Negative) Urine Nitrite 1+ (Negative) Urine Bilirubin 1+ (Negative) Urine Urobilinogen 4 mg/dL (Negative) Urine Leukocyte Esterase Negative /uL (Negative) Urine RBC 4 /hpf (0 - 4) Urine WBC Clumps Present /hpf (None Seen) Urine Microscopic WBC 56 /HPF (0-5) Urine Squamous Epithelial Cells Few /hpf (<5) Urine Bacteria Few /hpf (None Seen) Urine Mucus Few (None Seen) Urine Glucose Normal mg/dL (Normal) Test 03/29/25 09:19 03/29/25 09:08 03/29/25 08:59 Lactic Acid Level 1.6 mmol/L (0.4-2.0) Prothrombin Time 12.2 sec (9.3-11.8) Prothrombin Time INR 1.17 (0.9-1.15) Activated Partial Thromboplast Time 29.3 SEC (24.5-34.5) Urine Test Negative (Negative) Other Laboratory Tests 04/01/25 05:37 Brief Hx & Hospital Course: 44-year-old with past medical history of hypertension, who came to the hospital for flank pain. Patient states her pain began on Saturday with associated fever, chills, nausea, dysuria, frequency, and malaise. Patient states she was taking over the counter medications without improvement. They would help her for a little bit, then her symptoms would return. Symptoms resolved and treated for UTI, blood cx negative Condition at Discharge: Good Final Diagnosis/Problems List sepsis due to UTI Acute pyelonephritis, Complicated UTI, Transaminitis, Hypertension, Hyperglycemia, Discharge Disposition: Home Discharge Instruct/Medications Diet: Regular Activity: No Restrictions, As Tolerated Follow Up/Referral: PCP in 7 days Medications: augmentin Discharge Statement: "Patient was advised to return to the ER or call 911 if any headaches, dizziness, shortness of breath, chest pain, abdominal pain, bleeding, fevers, or worsening of medical condition. Patient was counseled about treatment plan, medications, possible side effects, patientverbalized understanding. All questions were answered to the best of my ability. This discharge took greater then 30 minutes in planning, reviewing documentation, counseling the patient, and discussing with other team members." ASSESSMENT ASSESSMENT Assessment sepsis due to UTI UTI Date of Service: Apr 01, 2025 Billing Provider: HEVER ONTIVEROS MD Common Visit Codes: [id number] DISCH DAY >30min HEVER ONTIVEROS MD Apr 06, 2025 04:51
== END 2025-04-01 16:40 | disposition home or self-care (01) | DRG 463 ==
LOC: ER 08:50 → OVERFLOW 14:25 → EAST 03-30 17:56
PROVIDERS: ADMIT Hospitalist; ATTEND Hospitalist
DX: N10 Acute pyelonephritis (principal); R65.11 Systemic inflammatory response syndrome (SIRS) of non-infectious origin with acute organ dysfunction; N17.0 Acute kidney failure with tubular necrosis; I10 Essential (primary) hypertension; R74.01 Elevation of levels of liver transaminase levels; R73.9 Hyperglycemia, unspecified; Z79.899 Other long term (current) drug therapy; Z90.49 Acquired absence of other specified parts of digestive tract
CPT/HCPCS: 36415; 71045; 76705; 76775; 80048; 80053; 80202; 81001; 81025; 83036; 83605; 85025; 85610; 85730; 87040; 87086; 96365; 99291; G0378